=== PATIENT | female | born 1985 | race Caucasian/White ===

== ENCOUNTER 2022-12-01 12:15 | Outpatient (CLI) | payer BC ==
[2022-12-01 13:06] LABS: BHCG - Serum Negative (NEGATIVE); Pregs Control Background? CLEAR/WHITE (CLR/WHITE); Pregs Control Bar Appear? YES (CONTROL BAR)
== END 2022-12-01 12:16 | disposition home or self-care (01) ==
LOC: LABBT 12:15
PROVIDERS: ATTEND Specialist
DX: Z01.818 Encounter for other preprocedural examination (principal); J35.01 Chronic tonsillitis; J35.1 Hypertrophy of tonsils
CPT/HCPCS: 84703; 85014

== ENCOUNTER 2022-12-03 07:48 | Day surgery (SDC) | payer BC ==
[2022-12-02 08:53] VITALS: BMI 27.4
[2022-12-03] MEDS ORDERED: Ferric Subsulfate (ASTRINGYN) 8 GM VIAL ONE (08:45)
[2022-12-03] MEDS ORDERED: fentaNYL 50 mcg/mL 1 mL Vial ONE ×2 (09:41→11:05)
[2022-12-03] MEDS ORDERED: Famotidine/PF 20 mg/2ml Vial ONE (09:41)
[2022-12-03] MEDS ORDERED: Meperidine HCl/PF 25 MG/ML VIAL ONE (09:41)
[2022-12-03] MEDS ORDERED: Metoclopramide HCl 10 MG/2 ML VIAL ONE (10:18)
[2022-12-03] MEDS ORDERED: Ondansetron PF 4 MG/2 ML Vial ONE (10:18)
[2022-12-03] MEDS ORDERED: PROPOFOL 200 MG/20 ML VIAL ONE (10:18)
[2022-12-03] MEDS ORDERED: Lidocaine 1% PF 5 ML VIAL ONE (10:18)
[2022-12-03] MEDS ORDERED: Ketorolac Tromethamine 30 MG/ML VIAL ONE (10:18)
[2022-12-03] MEDS ORDERED: Dexamethasone 20 MG/5 ML VIAL ONE (10:18)
[2022-12-03] MEDS ORDERED: Hydrocodone-Acetamin 15 ML UDCUP ONE (12:07)
== END 2022-12-03 12:35 | disposition home or self-care (01) ==
LOC: SDC 07:48
PROVIDERS: ATTEND Specialist
PROC: 0CTPXZZ Resection of Tonsils, External Approach (ICD-10-PCS; principal; 2022-12-03)
DX: J35.1 Hypertrophy of tonsils (principal); R13.10 Dysphagia, unspecified; Z79.899 Other long term (current) drug therapy
CPT/HCPCS: 88304; J1100; J1885; J2175; J2405; J2704; J2765; J3010; S0028